=== PATIENT | male | born 1975 | race Two or more races ===

== ENCOUNTER 2021-01-25 19:38 | Emergency (ER) | payer MEDICAID ==
[~2021-01-25] VITALS: Ht 165.1 cm; Wt 55.8 kg
--- NOTE | 2021-01-25 19:50 | NUR ---
PT TO ER BED 10 BIBRA FROM HOME. PER RA, PT WAS CHOKING AND WAS PERFORMED [place] ON. PATIENT ALSO STATES THAT HE IS 10 DAYS SOBER FROM A HISTORY OF ALCOHOL ABUSE. PATIENT IS ALSO C/O STOMACH PAIN. PATIENT IS ALERT AND ORIENTED x4. DENIES SOB. CONNECTED TO THE MONITOR.
[2021-01-25] MEDS ORDERED: PANTOPRAZOLE 40 MG VIAL ONE (21:11)
[2021-01-25] MEDS ORDERED: LORAZEPAM INJ 2 MG/ML VIAL ONE (21:11)
[2021-01-25] MEDS ORDERED: ONDANSETRON HCL/PF 4 MG/2 ML VIAL ONE (21:11)
[2021-01-25 21:16] LABS: BASOPHILS % (AUTO) 0.2 % (0.0-2.0); EOSINOPHILS % (AUTO) 0.6 % (0.0-6.0); HEMATOCRIT 40 % (39-51); HEMOGLOBIN 13.5 g/dL (13.5-17.5); LYMPHOCYTES # (AUTO) 0.5 K/uL (0.8-4.8); LYMPHOCYTES % (AUTO) 6.1 % (20.0-44.0); MEAN CORPUSCULAR HGB CONC 34 g/dl (31.0-36.0); MEAN CORPUSCULAR VOLUME 94 fL (80-96); MONOCYTES # (AUTO) 0.4 K/uL (0.1-1.30); MONOCYTES % (AUTO) 5.8 % (2.0-12.0); NEUTROPHILS # (AUTO) 6.5 K/uL (1.8-8.9); NEUTROPHILS % (AUTO) 87.3 % (43.0-81.0); PLATELET COUNT (AUTO) 138 K/uL (150-450); RED BLOOD CELL COUNT(AUTO) 4.29 MIL/uL (4.5-6.0); WHITE BLOOD COUNT (AUTO) 7.5 K/uL (4.3-11.0)
[2021-01-25] MEDS: IV NS 0.9% 1,000 ML BAG IV ONE (21:17)
[2021-01-25] MEDS: LORAZEPAM INJ 2 MG/ML VIAL IV ONE (21:17)
[2021-01-25] MEDS: PANTOPRAZOLE 40 MG VIAL IV ONE (21:17)
[2021-01-25] MEDS: ONDANSETRON HCL/PF 4 MG/2 ML VIAL IVP ONE (21:18)
[2021-01-25 21:24] LABS: CALCIUM, SERUM 9.4 mg/dL (8.5-10.1); CREATININE 0.7 mg/dL (0.6-1.3); POTASSIUM 3.9 mmol/L (3.5-5.1)
[2021-01-25 21:29] LABS: ALBUMIN 3.7 g/dL (3.4-5.0); BILIRUBIN,DIRECT 0.4 mg/dL (0.0-0.2); BILIRUBIN,TOTAL 1.7 mg/dL (0.2-1.0); TOTAL PROTEIN, SERUM 7.5 g/dL (6.4-8.2)
[2021-01-25] MEDS ORDERED: CHLO25CA22 PO (22:52)
[2021-01-25] MEDS ORDERED: ONDA4TAB11 PO (22:52)
--- NOTE | 2021-01-25 23:20 | NUR ---
IV removed. Catheter intact and site benign. Pressure and 4x4 applied to site. No bleeding noted.
--- NOTE | 2021-01-25 23:25 | NUR ---
PATIENT TAKEN HOME BY BROTHER AND MOTHER.
--- NOTE | 2021-01-25 23:26 | NUR ---
Patient discharged to home in stable condition. Written and verbal after care instructions given. Patient and mother and brother verbalizes understanding of instruction.
[2021-01-26 04:20] VITALS: BP 122/76
== END 2021-01-25 23:25 | disposition home or self-care (01) ==
LOC: ER 19:42
DX: F10.239 Alcohol dependence with withdrawal, unspecified (principal); R11.2 Nausea with vomiting, unspecified; Z79.899 Other long term (current) drug therapy; Y90.0 Blood alcohol level of less than 20 mg/100 ml
CPT/HCPCS: 36415; 71045; 80048; 80076; 80320; 83690; 85025; 96361; 96374; 96375; 99284; C9113; J2060; J2405; J7030; G0480